=== PATIENT | male | born 1980 | race Caucasian/White ===

== ENCOUNTER → 2021-12-14 | Outpatient (CLI) | payer BC ==
[~2021-12-14] MED LIST: FLUT16SP2 NS; [UNRECOGNIZED DRUG - CODE]
== END | disposition home or self-care (01) ==
LOC: LAB 12:28
PROVIDERS: ATTEND Family Medicine
DX: M25.561 Pain in right knee (principal)
CPT/HCPCS: 73564

== ENCOUNTER 2025-09-20 11:21 | Emergency (ER) | payer BC ==
[~2025-09-20] VITALS: Ht 180.3 cm; Wt 95.5 kg
[2025-09-20 11:25] VITALS: RESP 20; TEMP 98
--- NOTE | 2025-09-20 12:01 | Physician Documentation ---
History of Present Illness ~ Chief Complaint: Sore Throat Stated Complaint: DIFF SWOLLOWING Time Seen by MD: 11:59 Primary Medical Doctor: Chase joseph [facility] This is a 44 yr old male who presents to the ER reporting that he has had three days of dysphagia or what he describes as foreign body sensation in his throat. He notes that this is on the left side and there is some tenderness externally to the left sie of his neck as well. He denies chills or fever, nausea or vomiting, body aches, chest pain, dyspnea. It is difficult to swallow even just water. Medication Reconciliation Allergies: Coded Allergies: apple (Verified Allergy, Severe, throat swelling, 09/20/25) rifampin (Unverified Allergy, Unknown, 09/20/25) Uncoded Allergies: PEACHES (Allergy, Severe, throat swelling, 09/20/25) PEARS (Allergy, Severe, throat swelling, 09/20/25) Scheduled Fluorometholone (Fluorometholone), PRN, (Reported) Miscellaneous Medications Fluticasone Propionate (Flonase), 16 GM NS, (Reported) Past Medical History Past Medical History: Allergic Rhinitis Past Surgical History: orthopedic surgeries Lives In: Home Occupation: employed Review of Systems ROS As stated above in the HPI, otherwise all systems are reviewed and negative. Physical Exam Vital Signs: Temperature: 98.0, Source: Oral, Heart Rate: 83, Respiratory Rate: 20, BP: 147/103, Pulse Oximetry: 97, Weight: 95.450 Oxygen Flow Rate: 0 Physical Exam General: Alert, no apparent distress. HEENT: PERRL, EOMI, no injection, moist mucous membranes. Uvula visible midline. No enlargement or exudate noted on tonsils. No posterior pharyngeal erythema. Neck: Full range of motion. Respiratory: Lungs clear, no respiratory distress. Chest: No accessory muscle use. Cardiovascular: Regular rate and rhythm, no murmurs. Gastrointestinal: Soft, nontender, nondistended. Bowels sounds present. Extremities: Normal range of motion, no deformity. Neurologic: Oriented x4. Psychiatric: Normal mood and affect. Skin: Normal color, warm and dry. No edema, no ecchymosis. Progress Results/Orders Results/Orders Orders - MARY CORMIER [employer]CHITECT * Iv Access / Saline Lock * (09/20/25 12:05) Ct Neck Soft Tissues (09/20/25 13:18) MARY Thayer [employer]CH[employer]ECT Ct Neck Soft Tissues (09/20/25 13:18) C-Reactive Protein (09/20/25 12:05) Cbc/Diff (09/20/25 12:05) CMP (09/20/25 12:05) Iohexol 300mg/Ml 100ml Inj. (Omnipaque-3 (09/20/25 13:08) Vital Signs 09/20/25 11:25 Temp 98.0 Pulse 83 Resp 20 B/P (MAP) 147/103 Pulse Ox 97 O2 Flow Rate 0 Laboratory Tests Test 09/20/25 12:31 White Blood Count 6.1 Red Blood Count 4.92 Hemoglobin 14.7 Hematocrit 41.1 L Mean Corpuscular Volume 83.5 Mean Corpuscular Hemoglobin 29.8 Mean Corpuscular Hemoglobin Concent 35.7 Red Cell Distribution Width 13.2 Platelet Count 167 Mean Platelet Volume 7.9 Neutrophils (%) (Auto) 64.8 Lymphocytes (%) (Auto) 20.2 L Monocytes (%) (Auto) 9.8 Eosinophils (%) (Auto) 4.7 Basophils (%) (Auto) 0.5 Neutrophils # (Auto) 4.0 Lymphocytes # (Auto) 1.2 Monocytes # (Auto) 0.6 Eosinophils # (Auto) 0.3 Basophils # (Auto) 0.0 CBC Comment Sodium Level 139 Potassium Level 4.2 Chloride Level 102 Carbon Dioxide Level 29.6 Anion Gap 7 L Blood Urea Nitrogen 16 Creatinine 0.88 Estimated GFR/1.73 m2 > 90 BUN/Creatinine Ratio 18.2 Glucose Level 102 Calcium Level 8.8 Total Bilirubin 0.5 Aspartate Amino Transf (AST/SGOT) 27 Alanine Aminotransferase (ALT/SGPT) 53 Alkaline Phosphatase 56 C-Reactive Protein 0.26 Total Protein 7.6 Albumin 3.9 Globulin 3.7 Albumin/Globulin Ratio 1.1 Chemistry Comments EKG/XRAY/CT/US/VASC/MRI CT : [facility] [address], [place], [place] - [address] CAT SCAN Patient: SUKHDEEP ALEMAN Medical Record: [id number] [facility] : 1980, Age: 44 Sex: Male Location: ER Patient Status: [facility] ER Service Date/Time: 09/20/258 Ordering Physician: MARY CORMIER NP Exam: CT NECK SOFT TI SSUES EXAM: CT CT NECK SOFT TISSUES W/ IV CONTRAST INDICATION: dysphagia, pain Exam Date: 09/20/2025 01:09 PM COMPARISON: None TECHNIQUE: CT of the neck with intravenous contrast. RADIATION DOSE: CTDIvol: 14.8 mGy, DLP: 459.11 mGy*cm CONTRAST: Type of contrast: Omnipaque 300 Contrast injected: 100 ml FINDINGS: There is no evidence of cervical mass lesion, pathologically enlarged lymph nodes or fluid collection. The fat planes of the neck appear intact. The airway and larynx are unremarkable. The parotid, submandibular and thyroid glands are unremarkable. The vascular structures of the neck appear patent. The visualized lung apices are clear. The limited visualized portions of the brain are unremarkable. The osseous structures are unremarkable. IMPRESSION: No clear cause for pain. Electronically Signed by:ASHELY GEORGE MD Date & Time: 09/20/25 1348 Dictated by: ASHELY GEORGE MD Dictation date and time: 09/20/251317 Primary Care Provider: NO PRIMARY CARE PROVIDER cc: MARY CORMIER NP ~ Medical Decision Making Additional information obtaine: other Findings Most Likely Diagnoses: Gastroesophageal reflux disease (GERD) with esophagitis: GERD can present with globus sensation and odynophagia, even in the absence of classic heartburn or regurgitation. The [employer] notes that GERD symptoms are variable and may overlap with other esophageal disorders, and painful swallowing can occur with esophagitis.[1] Pill-induced esophagitis: Recent ingestion of medications such as NSAIDs, antibiotics, or bisphosphonates can cause localized esophageal injury, leading to odynophagia and globus sensation. Drug-induced esophagitis typically presents with chest pain and painful swallowing, often without systemic symptoms.[2] Eosinophilic esophagitis (EoE): EoE is increasingly recognized in adults and presents with dysphagia, food impaction, and sometimes odynophagia. Painful swallowing may occur, especially with active inflammation, and globus sensation is possible.[3] Esophageal motility disorder: Disorders such as diffuse esophageal spasm or achalasia can cause globus sensation and painful swallowing, especially with liquids. Motility disorders often present with dysphagia to both solids and liquids.[4] Laryngopharyngeal reflux (LPR): LPR can cause globus sensation and throat discomfort, sometimes with odynophagia, and is often not accompanied by classic GERD symptoms.[5] Most Important Not to Miss Diagnoses: Epiglottitis: Although rare in healthy adults, epiglottitis can present with severe odynophagia and globus sensation. The absence of fever and respiratory distress makes it less likely, but airway compromise must be ruled out by assessing for stridor, drooling, or muffled voice. Direct visualization is diagnostic.[6] Retropharyngeal abscess: Presents with severe odynophagia, neck pain, and systemic symptoms. In the absence of fever, trismus, or neck stiffness, it is less likely, but imaging (CT neck) is warranted if clinical suspicion arises.[7] Esophageal perforation (Boerhaave syndrome): Typically presents with severe chest pain, subcutaneous emphysema, and systemic toxicity. Painful swallowing alone is not typical, but a history of forceful vomiting or trauma should prompt urgent imaging.[8] Ear Diff. Dx: Considerations: Include: Other Eye Diff. Dx: Considerations: Include: Other Nose Diff. Dx: Considerations: Include: Other Tooth Diff. Dx: Considerations: Include: Other Throat Diff Dx: Considerations: Include: Other Additional Comment Normal Labs. Normal CT neck. Suspect GERD versus eosinophilic esophagitis versus globus sensation due to anxiety. Departure Time of Disposition: 13:54 Disposition: 01 HOME / SELF CARE / HOMELESS Impression: Primary Impression: Dysphagia Additional Impression: Sore throat Condition: Stable Discharge Instructions: Sore Throat Additional Instructions: Try flonase and omeprazole, if these are ineffective, ask for GI referral. ### Dysphagia: Causes & Next Steps What could be causing difficulty swallowing and mild pain? When swallowing is hard or painful, but imaging and blood tests are normal, the most common causes are: - Gastroesophageal reflux disease (GERD): Acid from the stomach can irritate the esophagus, causing pain and a sensation of something stuck. This is common even without classic heartburn.[1][2][3][4][5] - Eosinophilic esophagitis (EoE): An allergic inflammation of the esophagus, increasingly seen in adults. It may not show up on imaging and often requires endoscopy with biopsy for diagnosis.[1][2][4][5][6] - Pill-induced esophagitis: Some medications can irritate the esophagus, especially if taken without enough water or before lying down.[1][2][4] - Esophageal motility disorders: Problems with the muscles or nerves that move food down the esophagus, such as achalasia or spasm. These are less common but can cause symptoms even when tests are normal.[1][7][3][5][8][6] - Functional dysphagia: Sometimes, no clear cause is found. This may be due to heightened sensitivity or subtle changes in how the brain processes swallowing. Reassurance and simple dietary changes often help.[3] What are the next steps? - Endoscopy (EGD): This is often recommended to look directly at the esophagus and take biopsies, especially to rule out EoE or subtle inflammation.[1][7][4][5][6] - Empiric acid suppression: A trial of a proton pump inhibitor (PPI) for 4 weeks may be suggested to see if symptoms improve, as GERD is a common cause.[1][3][5] - Review medications: Check if any pills could be causing irritation and discuss with your provider.[1][3] - Esophageal manometry or barium swallow: If endoscopy is normal, these tests can check for motility disorders.[7][3][5][8][6] - Diet and swallowing strategies: Eating slowly, taking small bites, and avoiding very dry or tough foods may help. If symptoms persist, a speech- language pathologist can provide tailored advice.[7][9][10][11] When to seek urgent care: If you develop choking, severe chest pain, vomiting blood, or sudden inability to swallow, seek emergency care immediately. Summary Most cases with normal imaging and labs are due to reflux, mild inflammation, or functional changes. Endoscopy is usually the next step if symptoms persist. Most causes are treatable, and reassurance is important.[1][7][3][4][5][6] ### References 1. Dysphagia: Evaluation and Collaborative Management. Amrita JM, Navi DC, Dorene RP. [employer]. 2020;103(2):97-106. 2. Dysphagia: Thinking Outside the Box. Pb H, Oh M, Nohemy D, Maggie S, Argelia R. World Journal of Gastroenterology. 2017;23(38):4142- 2751. doi:10.3748/wjg.[email or web address].[id number]. 3. Oesophageal Dysphagia: A Stepwise Approach to Diagnosis and Management. Yang adrien . The Lancet. Gastroenterology & Hepatology. 2017;2(8):604-609. doi:10.1016/[id number]. 4. The Role of Endoscopy in the Evaluation and Management of Dysphagia. Juvenal SF, Deniz RD, Alfredo V, et al. Gastrointestinal Endoscopy. 201 4;79(2):191-201. doi:10.1016/j.gie.2013.07.042. 5. How I Approach Dysphagia. Julia JOAO, Darline PJ. Current Gastroenterology Repor ts. 2019;21(10):49. doi:10.1007/m11570-592-8220-7. 6. Oesophageal Dysphagia: Manifestations and Diagnosis. Emiliano F, Luisito T. Na ture Reviews. Gastroenterology & Hepatology. 2015;12(6):322-31. doi:10.1038/nrgastro.2014.195. 7. Esophageal and Oropharyngeal Dysphagia: Clinical Recommendations From the United Gastroenterology and Society for Neurogastroenterology and Motility. Flavia Hunter, Bebeto F, Pasta A, et al. United Gastroenterology Journal. 2024;13(6):855-901. doi:10.1002/ueg2.68513. 8. Assessment and Management of Dysphagia and Achalasia. Argelia [place]. Clinical Medicine ([place], [place]). 2020;21(2):119-123. doi:10.7861/clinmed.0596-7997. 9. Dysphagia in Older Adults. Susana S, Cesar AE, Miguelina B, Mary KL, Usman PY. [facility] Proceedings. 2020;96(2):488-497. doi:10.1016/j.[facility].08.001. 10. Guidelines for Adult Stroke Rehabilitation and Recovery: A Guideline for Healthcare Professionals From the [employer] St[employer] Association. Laurent CJ, Ortiz J, [place] R, et al. Stroke. 2016;47(6):g37-y422. doi:10.1161/STR.[id number]. 11. Dysphagia After Stroke: Research Advances in Treatment Interventions. Bonny B, Jacki E, Dariel-Luisa M, et al. The Lancet. Neurology. 2023;23(4):418-428. doi:10.1016/[id number]([id number]. Referrals: NO PRIMARY CARE PROVIDER (PCP) Prescriptions Omeprazole (Omeprazole) 20 Mg Capsule.dr 1 CAP PO DAILY for 30 Days, #30 CAP 0 Refills Prov: MARY CORMIER NP 09/20/25 Fluticasone Propionate (Flonase) 16 Gm [place].susp 2 SPRAYS BOTHNARES DAILY for 30 Days, #16 GM Prov: MARY CORMIER NP 09/20/25 Education Educated: Patient Educated regarding: diagnosis, treatment, prognosis, need for follow up Signature Scribe Signature: x Attestation: The note accurately reflects work and decisions made by me.Mary Potts NP 1 12:00 MARY CORMIER NP Sep 20, 2025 12:01
[2025-09-20 12:54] LABS: MEAN PLATELET VOLUME 7.9 FL (7.4-10.4); RED CELL DISTRIBUTION WIDTH 13.2 % (11.5-14.5)
[2025-09-20 13:05] LABS: CREATININE 0.88 MG/DL (0.60-1.10); TOTAL CARBON DIOXIDE 29.6 MMOL/L (24-32); eCRCL 113 ML/MIN; eGFR > 90 ML/MIN
[2025-09-20] MEDS ORDERED: iohexol 300mg/ml 100ml inj. ONE (13:08)
--- NOTE | 2025-09-20 13:50 | RADIOLOGY REPORT ---
EXAM: CT CT NECK SOFT TISSUES W/ IV CONTRAST INDICATION: dysphagia, pain Exam Date: 09/20/2025 01:09 PM COMPARISON: None TECHNIQUE: CT of the neck with intravenous contrast. RADIATION DOSE: CTDIvol: 14.8 mGy, DLP: 459.11 mGy*cm CONTRAST: Type of contrast: Omnipaque 300 Contrast injected: 100 ml FINDINGS: There is no evidence of cervical mass lesion, pathologically enlarged lymph nodes or fluid collection. The fat planes of the neck appear intact. The airway and larynx are unremarkable. The parotid, submandibular and thyroid glands are unremarkable. The vascular structures of the neck appear patent. The visualized lung apices are clear. The limited visualized portions of the brain are unremarkable. The osseous structures are unremarkable. IMPRESSION: No clear cause for pain.
[2025-09-20] MEDS ORDERED: FLUT16SP2 BOTHNARES (14:08)
[2025-09-20] MEDS ORDERED: OMEP20CA16 PO (14:08)
[2025-09-20 14:09] VITALS: BP 139/91; PULSE 82; O2SAT 98
== END 2025-09-20 14:15 | disposition home or self-care (01) ==
LOC: ER 11:21 → EEVIPCON 11:21 → ER 14:15
DX: R13.10 Dysphagia, unspecified (principal); J02.9 Acute pharyngitis, unspecified; K21.9 Gastro-esophageal reflux disease without esophagitis; Z91.018 Allergy to other foods; Z88.1 Allergy status to other antibiotic agents; Z79.899 Other long term (current) drug therapy; Z98.890 Other specified postprocedural states
CPT/HCPCS: 36415; 70491; 80053; 85025; 86140; 99285; Q9967